=== PATIENT | male | born 1935 | race Caucasian/White ===

== ENCOUNTER → 2017-10-25 | Outpatient (CLI) | payer OTHER, MEDICARE ==
[~2017-10-25] MED LIST: ACET-3017 PO; ACET500L35 PO; ADV250/50 INH; ALBU8.5H12 IH; AMI25 PO; AMOX-559 PO; ASPI-292 PO; ASPI-715 PO; ASPI-879 PO; ASPI81TA15 PO; ASPI81TA94 PO; ATOR20TA22 PO; ATOR40TA24 PO; AZI250 PO; BACDS PO; BIS10S PR; CHOLEST MED; CIP500 PO; CLOP75TA PO; CLOP75TA65 PO; DEXL60CA6 PO; DIC10 PO; DICY10CA11 PO; DICY10CA62 PO; DOC100 PO; ESOM40CA42 PO; FAM20 PO; FES4PT PO; FLU10 PO; FLU180SY9 IM; GEM600 PO; GEMF600T89 PO; GEMF600T91 PO; HYDR-6015 PO; HYDR1TAB PO; IBU200 PO; LAN30PT PO; LANS15CA38 PO; LEVE100034 PO; LEVE750T48 PO; LOR5/325 PO; LOR7.5/325 PO; LORA-1455 PO; LOSA100T67 PO; LOSA50TA72 PO; MAGN30OR2 PO; MET10 PO; METH1TAB65 PO; METH4TAB66 PO; METO50TA19 PO; MIR PO; MULT-820 PO; MULT-865 PO; MULTIVIT; OMEP-153 PO; OMEP-218 PO; ONDA4TAB SL; OXYC1TAB54 PO; OXYGEN INH; OXYGENHOME INH; PARO10TA80 PO; PER PO; PHENA200 PO; POLY17PO25 PO; PRE5 PO; PRED20TA6 PO; PRO25 PO; PROM12.546 PO; RIVA20TA PO; TAMS0.4C76 PO; TOLT4CAP PO; TOLT4CAP13 PO; TRA50 PO; TRAM-420 PO; TRAN1TBM PO; TRIC15T TOP; UMEC1DIS INH; WARF2.5T11 PO; [UNRECOGNIZED DRUG - CODE] PO; [UNRECOGNIZED DRUG - CODE] PO; [UNRECOGNIZED DRUG - REMARK]
[2017-10-25 16:56] LABS: PLATELET COUNT, AUTOMATED 209 K/uL (150-450)
== END ==
LOC: LAB 16:32
PROVIDERS: ATTEND Family Medicine
DX: I25.10 Atherosclerotic heart disease of native coronary artery without angina pectoris (principal); R53.83 Other fatigue; E53.8 Deficiency of other specified B group vitamins; E55.9 Vitamin D deficiency, unspecified; Z79.01 Long term (current) use of anticoagulants
CPT/HCPCS: 36415; 82040; 82247; 82306; 82310; 82374; 82435; 82565; 82607; 82947; 84075; 84132; 84155; 84295; 84443; 84450; 84460; 84520; 85025

== ENCOUNTER → 2017-12-14 | Outpatient (CLI) | payer OTHER, MEDICARE ==
[~2017-12-14] MED LIST changes: +DIPH0.5D12 IM; +PSYL660P5
[2017-12-14 09:09] LABS: PLATELET COUNT, AUTOMATED 206 K/uL (150-450)
== END ==
LOC: LAB 08:38
PROVIDERS: ATTEND Family Medicine
DX: R19.7 Diarrhea, unspecified (principal); R10.9 Unspecified abdominal pain; R53.83 Other fatigue
CPT/HCPCS: 36415; 82040; 82247; 82310; 82374; 82435; 82565; 82947; 84075; 84132; 84155; 84295; 84443; 84450; 84460; 84520; 85025

== ENCOUNTER → 2017-12-16 | Outpatient (CLI) | payer OTHER, MEDICARE ==
[~2017-12-16] MED LIST changes: +IOPAMIDOL 76% 75 ML INFUS BTL 75 ML ONE
--- NOTE | 2017-12-16 10:21 | RADIOLOGY IMAGING REPORT ---
[place] [facility] [place] NAME: Lloyd Cardona : 1935 MR: [id number] V: [id number] EXAM DATE: ORDERING PHYSICIAN: BALDEV HATFIELD TECHNOLOGIST: Location: [facility] - [place] Patient: Lloyd Cardona : 1935 Visit/Account:[id number] Date of Sevice: 12/16/2017 EXAMINATION: CT abdomen without IV contrast CT abdomen with IV contrast CT pelvis without IV contrast CT pelvis with IV contrast HISTORY: Abdominal pain. Diarrhea. Colon cancer. TECHNIQUE: Spiral scans were obtained through the abdomen and pelvis before and during injection of nonionic iodinated intravenous contrast. Sagittal and coronal reformatted images are also submitted . One of the following dose optimization techniques was utilized in the performance of this exam: Autom ated exposure control; adjustment of the mA and/or kV according to the patient's size; or use of an i terative reconstruction technique. Specific details can be referenced in the facility's radiology C T exam operational policy. CONTRAST: 75 mL of IV Isovue-370 COMPARISON: CTA runoff dated 04/14/2014. FINDINGS: Lower chest: Coronary artery calcification. Partially imaged cardiac leads. Liver / biliary: Multiple small hypodensities in the liver are similar compared to prior exams. Post op cholecystectomy. Pancreas: Negative. Spleen: Negative. Adrenal glands: Negative. Kidneys: Multiple stable bilateral renal cysts measuring up to 7.9 x 6.1 cm on the left. Otherwise n egative. Pelvic structures: Negative. Bowel: Suture line in the distal transverse colon. No obstruction or bowel wall thickening. Peritoneum / retroperitoneum / mesenteries: Negative. Vessels: Moderate aortoiliac calcification. Stent in the right common iliac artery. Occluded left i liac arteries. Patent femorofemoral bypass graft. Portal, splenic, and mesenteric veins are patent. Lymph nodes: Negative. Musculoskeletal / Body wall: Multilevel degenerative disc disease and facet hypertrophy in the thorac olumbar spine. Mild convex leftward curvature of the thoracolumbar spine. Mild bilateral hip osteoa rthritis. No aggressive osseous lesions. IMPRESSION: 1. No acute abnormality in the abdomen or pelvis. 2. Multiple small stable hypodensities in the liver. These are most likely benign cysts. No additi onal evidence of metastasis in the abdomen or pelvis. 3. Stable bilateral renal cysts. Report Dictated By: Austin Casiano MD at 12/16/2017 9:36 AM Report E-Signed By: Austin Casiano MD at 12/16/2017 10:17 AM WSN:[email or web address]
== END ==
LOC: CT 02:07
PROVIDERS: ATTEND Family Medicine
DX: N28.1 Cyst of kidney, acquired (principal); K76.89 Other specified diseases of liver
CPT/HCPCS: 74178; Q9967

== ENCOUNTER → 2018-02-08 | Outpatient (CLI) | payer OTHER, MEDICARE ==
[~2018-02-08] MED LIST changes: +BARIUM SULFATE 176 GM BTL PO ONE; +BARIUM SULFATE 340 GM POWD ONE; +DUL20 PO; -IOPAMIDOL 76% 75 ML INFUS BTL 75 ML ONE; -LOSA100T67 PO; +LOSA100T69 PO; +LOSA25TA52 PO; -LOSA50TA72 PO; +LOSA50TA74 PO; +RANI-318 PO
--- NOTE | 2018-02-08 14:00 | RADIOLOGY IMAGING REPORT ---
FACILITY: [facility] PATIENT NAME: Lloyd Cardona : 1935 MR: [id number] V: [id number] EXAM DATE: ORDERING PHYSICIAN: GEOVANNA DANIELS TECHNOLOGIST: Location: [facility] Patient: Lloyd Cardona : 1935 Visit/Account:[id number] Date of Sevice: 02/08/2018 Exam type: UPPER GI W/SMALL BOWEL SERIES History: Postprandial nausea, upper abdomen pain, diarrhea Comparison: May 04, 2011. Findings: Double contrast upper GI series was performed with thick and thin barium and air. There is a small h iatal hernia with a large amount of gastroesophageal reflux observed. No significant esophageal narr owing or mucosal erosion is seen. The gastric antrum appear to be displaced superiorly with widening of the duodenal C-loop. The gastric antrum was hypoperistaltic. There is a paucity of gastric fold s. The duodenal bulb was grossly unremarkable. The barium was followed throughout the small bowel to the unremarkable terminal ileum with a transit time of 30 minutes.. There appeared to be transient dilatation of multiple loops of small bowel in t he mid and left-sided abdomen measuring up to 6 cm in diameter although no mechanical obstruction was identified. The fluoroscopy dose area product was 2104.47 micro-Espinoza per meter squared IMPRESSION: 1. Small hiatal hernia with a large amount of gastroesophageal reflux although no significant esopha geal narrowing or mucosal erosion The gastric antrum appear to be displaced superiorly with widening of the duodenal C-loop. Although this could represent an anatomic variant possibility of extrinsic mass effect from a mass lesion is n ot excluded and clinical correlation is needed. The gastric antrum appeared hypoperistaltic although no mechanical obstruction seen. There is a paucity of gastric folds noted Transit time through the small bowel to the right-sided colon was 30 minutes. There appear to be tra nsient dilatation of multiple loops of small bowel in the mid and left-sided abdomen measuring up to 6 cm in diameter although no mechanical obstruction identified Report Dictated By: Traci Lagunas MD at 02/08/2018 1:39 PM Report E-Signed By: Traci Lagunas MD at 02/08/2018 1:55 PM WSN:[email or web address]
== END ==
LOC: RAD 02:19
PROVIDERS: ATTEND Surgery
DX: K21.9 Gastro-esophageal reflux disease without esophagitis (principal); K44.0 Diaphragmatic hernia with obstruction, without gangrene
CPT/HCPCS: 74245

== ENCOUNTER 2018-02-28 00:58 | Day surgery (SDC) | payer OTHER, MEDICARE ==
[~2018-02-28] VITALS: Ht 172.7 cm; Wt 68.5 kg
[~2018-02-28 00:58] MED LIST changes: -BARIUM SULFATE 176 GM BTL PO ONE; -BARIUM SULFATE 340 GM POWD ONE; +FLU180SY11 IM
[2018-02-28 06:59] VITALS: BP 128/74
[2018-02-28] MEDS ORDERED: NORMOSOL R SOLN(*) 1000 ML BAG 1,000 ML IV PRN (07:25)
[2018-02-28] MEDS ORDERED: LIDOCAINE/SOD BICARB 8.4% SYR ID ONE (07:25)
[2018-02-28 08:49] VITALS: BP 98/55
[2018-02-28 09:00] VITALS: BP 81/48
--- NOTE | 2018-02-28 09:02 | Short(Outpt) Discharge Summary ---
Discharge Summary Reason for Hosp/Final Diag: (1) Upper abdominal pain Status: Chronic Hospital Course & Plan: EGD with biopsies completed without problems. (2) Postprandial nausea Status: Chronic (3) Frequent loose stools Status: Chronic Departure Discharge to: Home, Self Care Discharge Instructions Home Meds Active Scripts Ranitidine Hcl (RANITIDINE HCL) 150 Mg Tablet, 1 TAB PO BID, #60 TAB 3 Refills Prov:GEOVANNA DANIELS MD 01/31/18 Duloxetine Hcl (CYMBALTA) 20 Mg Capcr, 20-40 MG PO QDAY for 30 Days, #60 CAP Prov:BALDEV HATFIELD MD 01/26/18 Losartan Potassium (LOSARTAN POTASSIUM) 25 Mg Tablet, 25 MG PO QDAY for 90 Days, #90 TAB 4 Refills Prov:BALDEV HATFIELD MD 01/26/18 Atorvastatin Calcium (LIPITOR) 40 Mg Tablet, 1 TAB PO QDAY, #90 TAB 4 Refills Prov:BALDEV HATFIELD MD 12/26/17 Rivaroxaban 20 Mg (XARELTO 20 MG) 20 Mg Tablet, 1 TAB PO DAILY for 60 Days, #60 TAB 3 Refills Prov:BALDEV HATFIELD MD 09/23/17 Reported Medications Psyllium Husk (Metamucil) 3.4 Gram/5.4 Gram Powder 11/30/17 Oxygen (OXYGEN) Inha, 1.5 L INH QHS, L 12/08/16 Multivitamin (DAILY MULTIPLE VITAMIN) 1 Each Tablet, 1 TAB PO DAILY 12/08/16 Polyethylene Glycol 3350 (MIRALAX) 17 Gm Powd.pack, 17 GM PO DAILY, PKT 12/08/16 Diet: Regular Activity: As Tolerated Special Instructions: Your upper endoscopy was completed without any problems. I took some biopsies of your small intestine and stomach. Everything looked normal other than a small hiatal hernia which is benign and common, occuring in about 40% of people. I didn't find any cancer, ulcers, or inflammation. My office will call you in the next couple of days to order some further testing and schedule a follow up appointment to see me back in my office to discuss your symptoms and to discuss the results of all the tests we'll have completed by that time. Problem Qualifiers (1) Frequent loose stools: Diarrhea type: unspecified type Qualified Codes: R19.7 - Diarrhea, unspecified JEREMIAH,LILLIAN MD Feb 28, 2018 09:02
[2018-02-28 09:30] VITALS: BP 115/81
[2018-02-28 09:52] VITALS: BP 116/73
[2018-02-28 09:54] VITALS: BP 131/83
== END 2018-02-28 10:11 | disposition home or self-care (01) ==
LOC: OR 00:58
PROVIDERS: ATTEND Surgery
DX: K44.9 Diaphragmatic hernia without obstruction or gangrene (principal)
CPT/HCPCS: 36415; 83516; 86256; 87077; 88305

== ENCOUNTER 2018-03-03 12:16 | Outpatient (RCR) | payer OTHER, MEDICARE ==
[2018-03-06] MEDS ORDERED: NS(*) 0.9% 50 ML BAG 50 ML ONE (07:37)
[2018-03-06] MEDS ORDERED: IOPAMIDOL 76% 100 ML INFUS BTL 100 ML ONE (07:37)
--- NOTE | 2018-03-06 11:22 | RADIOLOGY IMAGING REPORT ---
FACILITY: [facility] - [place] PATIENT NAME: Lloyd Cardona : 1935 MR: [id number] V: [id number] EXAM DATE: ORDERING PHYSICIAN: GEOVANNA DANIELS TECHNOLOGIST: Location: [facility] - [place] Patient: Lloyd Cardona : 1935 Visit/Account:[id number] Date of Sevice: 03/06/2018 CTA ABDOMEN PELVIS W WO CONT HISTORY: Bloating abdomen pain, postprandial nausea ADDITIONAL HISTORY: None. TECHNIQUE: CTA abdomen and pelvis with IV contrast. 3D coronal slab MIPs and 2D reconstructions in the coronal and sagittal planes were also created. Dose Lowering Technique One of the following dose optimization techniques was utilized in the performance of this exam: Autom ated exposure control; adjustment of the mA and/or kV according to the patient's size; or use of an i terative reconstruction technique. Specific details can be referenced in the facility's radiology C T exam operational policy. CONTRAST: 100 COMPARISON: None. FINDINGS: Vessels: There are moderate atherosclerotic calcifications in the infrarenal abdominal aorta without aneurysmal dilatation. There is a right common iliac artery stent. There is occlusion of the left common iliac artery and torres martinez left common femoral artery. There is a femorofemoral bypass graft tunneled in the subcutaneous soft tissues anterior to the pubic symphysis which is well opacified with contrast. There is a moderate narrowing in the SMA approximately 3.5 cm beyond its origin. There is a blush of contrast seen just to the left of midline in the anterior abdomen (image 54 of series 4) which appears to be within the wall of the loop of small bowel. A similar finding is seen but to lesser extent along the posterior wall at the junction of the second and third portions of the duodenum present on image 52 of series 4. These likely represent small focal AVMs or foci of angiod ysplasia. Abdomen and Pelvis: The abdominal and pelvic organs were visualized in the arterial phase Visualized lower lung garcia: Cardiac leads are partially visualized Hepatobiliary: Postsurgical changes from a cholecystectomy Previously noted tiny round hypodensities within the liver were better depicted on the prior portal v enous phase images Spleen: Negative. Adrenals: Negative. Pancreas: Negative. Kidneys: Again noted are bilateral renal cysts that appear relatively stable. Upper pole cyst on th e left contains a coarse calcifications similar to the prior study . Pelvic structures: There appears to been a TURP. Bowel/peritoneum/mesentery: Surgical anastomosis again seen in the distal transverse colon with a fo jacklyn dilatation of the bowel although appears similar to the prior study and likely represents an aton ic segment. There is mild thickening of multiple loops of small bowel in the mid abdomen in addition to several mildly dilated fluid-filled loops of small bowel in the right lower quadrant measuring up to 3.5 cm in diameter . Lymph nodes: Negative. Bones/body wall: Extensive spondylotic changes of the thoracolumbar spine Other findings: None significant IMPRESSION: There is mild thickening of multiple loops of small bowel in the mid abdomen in addition to several m ildly dilated fluid-filled loops of small bowel in the right lower quadrant. This could represent fo jacklyn area of enteritis. The bowel wall is enhancing therefore ischemia seems less likely. There is a moderate narrowing the SMA approximately 3.5 cm beyond its origin There are two focal areas demonstrating a blush of contrast within small bowel wall as described abov e which likely represents areas of angiodysplasia or AVMs. 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 Additional chronic findings as described Report Dictated By: Traci Lagunas MD at 03/06/2018 9:50 AM Report E-Signed By: Traci Lagunas MD at 02/14 11:18 AM WSN:[email or web address]
[2018-03-31] MEDS ORDERED: DUL20 PO (10:55)
== END 2018-03-06 18:00 | disposition home or self-care (01) ==
LOC: CT 12:16 → EDSTATUS 03-06 12:16 → CT 03-06 18:00
PROVIDERS: ATTEND Surgery
DX: Z01.812 Encounter for preprocedural laboratory examination (principal); I25.10 Atherosclerotic heart disease of native coronary artery without angina pectoris; Z95.828 Presence of other vascular implants and grafts; I74.5 Embolism and thrombosis of iliac artery
CPT/HCPCS: 36415; 74174; 82565; J7050; Q9967

== ENCOUNTER → 2018-09-20 | Outpatient (CLI) | payer OTHER, MEDICARE ==
[~2018-09-20] MED LIST changes: -DIPH0.5D12 IM; +DIPH0.5S2 IM; -LOSA100T69 PO; +LOSA100T75 PO; -LOSA25TA52 PO; +LOSA25TA57 PO; -LOSA50TA74 PO; +LOSA50TA80 PO
[2018-09-20 08:47] LABS: PLATELET COUNT, AUTOMATED 177 K/uL (150-450)
== END ==
LOC: LAB 08:24
PROVIDERS: ATTEND Family Medicine
DX: R04.0 Epistaxis (principal)
CPT/HCPCS: 36415; 82310; 82374; 82435; 82565; 82947; 84132; 84295; 84520; 85025

== ENCOUNTER 2018-10-25 20:22 | Emergency (ER) | payer OTHER, MEDICARE ==
[~2018-10-25 20:22] MED LIST changes: +BENZ100C4 PO
--- NOTE | 2018-10-25 20:25 | ER Report ---
History and Physical Time Seen By MD: 20:24 HPI/ROS CHIEF COMPLAINT: Throat closing sensation HISTORY OF PRESENT ILLNESS: 83-year-old male has been sick with cold symptoms for several days last week. He was started on Tessalon and take well by his primary care physician, . Patient tonight after eating some spices and some cream of mushroom soup began to develop some throat swelling sensation. He's had no fever, no chills. He notes no sore throat. He's been started on no new medications that would cause angioedema or throat swelling. Patient reports that he is getting slightly better now that he is arrived to the hospital. REVIEW OF SYSTEMS: Respiratory: No cough, no dyspnea. Cardiovascular: No chest pain, no palpitations. Gastrointestinal: No vomiting, no abdominal pain. Musculoskeletal: No back pain. Allergies: Coded Allergies: Sulfa (Sulfonamide Antibiotics) (Verified Allergy, Intermediate, RASH, 10/25/18) cefazolin (Verified Allergy, Mild, ITCHING, NAUSEA, 10/25/18) atorvastatin (Verified Allergy, Unknown, 10/25/18) cephalexin (Verified Allergy, Unknown, 10/25/18) ciprofloxacin (Verified Allergy, Unknown, 10/25/18) fentanyl (Verified Allergy, Unknown, 10/25/18) "freaks out" gluten (Verified Allergy, Unknown, 10/25/18) Celiac disease iodine (Verified Allergy, Unknown, CHILDHOOD REACTION-PT AVOIDS, 10/25/18) paroxetine (Verified Allergy, Unknown, 10/25/18) sulfamethoxazole (Verified Allergy, Unknown, 10/25/18) trimethoprim (Verified Allergy, Unknown, 10/25/18) vancomycin (Verified Allergy, Unknown, 10/25/18) meperidine (Verified Adverse Reaction, Intermediate, HALLUCINATIONS, 10/25/18) oxycodone HCl (Verified Adverse Reaction, Mild, NAUSEA, 10/25/18) Home Meds Active Scripts Azithromycin 250 Mg Tab (AZITHROMYCIN 250 MG TAB) 250 Mg Tablet, 0 PO QDAY, #6 TAB TAKE 2 TABLETS ON DAY 1 AND 1 TABLET ON DAYS 2-5 Prov:RUCHI GARCIA DO 10/25/18 Benzonatate 100 Mg Cap (TESSALON PERLE 100 MG CAP) 100 Mg Capsule, 100 MG PO TID PRN for cough, #15 CAP Prov:BALDEV HATFIELD MD 10/18/18 Duloxetine Hcl (CYMBALTA) 20 Mg Capcr, 2 CAP PO QDAY for 90 Days, #180 CAP 2 Refills Prov:BALDEV HATFIELD MD 09/04/18 Rivaroxaban 20 Mg (XARELTO 20 MG) 20 Mg Tablet, 1 TAB PO DAILY for 90 Days, #90 TAB 2 Refills Prov:BALDEV HATFIELD MD 09/04/18 Ranitidine Hcl (RANITIDINE HCL) 150 Mg Tablet, 1 TAB PO BID, #120 TAB 6 Refills Prov:GEOVANNA DANIELS MD 05/23/18 Losartan Potassium (LOSARTAN POTASSIUM) 25 Mg Tablet, 25 MG PO QDAY for 90 Days, #90 TAB 4 Refills make sure ADIKT[employer] manufacture for gluten free Prov:BALDEV HATFIELD MD 04/27/18 Atorvastatin Calcium (LIPITOR) 40 Mg Tablet, 1 TAB PO QDAY, #90 TAB 4 Refills Prov:BALDEV HATFIELD MD 12/26/17 Reported Medications Oxygen (OXYGEN) Inha, 1.5 L INH QHS, L 12/08/16 Multivitamin (DAILY MULTIPLE VITAMIN) 1 Each Tablet, 1 TAB PO DAILY 12/08/16 Discontinued Reported Medications Psyllium Husk (Metamucil) 3.4 Gram/5.4 Gram Powder 11/30/17 Polyethylene Glycol 3350 (MIRALAX) 17 Gm Powd.pack, 17 GM PO DAILY, PKT 12/08/16 Reviewed Nurses Notes: Yes Old Medical Records Reviewed: Yes Hx Smoking: No Smoking Status: Former Smoker Exposure to Second Hand Smoke?: No Hx Substance Use Disorder: No Hx Alcohol Use: No Constitutional Vital Sign - Last 24 Hours 10/25/18 10/25/18 10/25/18 10/25/18 20:25 20:25 20:30 20:37 Temp 99.6 Pulse 72 72 Resp 22 B/P (MAP) 145/79 145/79 (101) 129/70 (89) Pulse Ox 91 92 O2 Delivery Room Air 10/25/18 10/25/18 10/25/18 10/25/18 20:52 21:00 21:07 21:20 Pulse 70 69 70 Resp 16 B/P (MAP) 125/72 (89) Pulse Ox 89 90 10/25/18 10/25/18 10/25/18 10/25/18 21:20 21:22 21:27 21:29 Pulse 70 70 70 Resp 16 Pulse Ox 94 94 94 O2 Delivery Nasal Cannula O2 Flow Rate 1.0 10/25/18 10/25/18 10/25/18 10/25/18 21:30 21:42 21:59 22:12 Pulse 69 69 B/P (MAP) 135/80 (98) 141/89 (106) Pulse Ox 94 97 10/25/18 10/25/18 22:27 22:30 Pulse 70 B/P (MAP) 139/78 (98) Pulse Ox 95 Medical Decision Making ED Course/Re-evaluation ED Course Patient was admitted to an examination room. H&P was done. The differential diagnosis was considered. Patient with cold symptoms for several days, almost one week now. He's having some throat swelling sensation and pain in his throat. He reports no hives or itching or flushing. He feels his throat is closing. He keeps clearing his throat. He had cream of mushroom soup for dinner and has started no new medications. He was prescribed Tessalon Perles by his primary care doctor Vickie. Patient denies any new medications that would likely be causing angioedema. His medication list was reviewed. Patient notes continued low-grade fevers. He has a nonproductive cough. He denies postnasal drip or nasal drainage. Patient was treated with IV Solu-Medrol, Benadryl and a DuoNeb. He was unimproved. A chest x-ray was performed as the patient's persistent cough and shortness of breath. It was unremarkable for obvious infiltrate. Comparison to previous chest x-ray. There is no evidence of change. Patient be discharged home on Zithromax. He is advised to follow-up with Dr. Hatfield in 3-4 days if unimproved. Decision to Disposition Date: Oct 25, 2018 Decision to Disposition Time: 22:29 Depart Departure Latest Vital Signs Vital Signs Date Time Temp Pulse Resp B/P (MAP) Pulse Ox O2 Delivery O2 Flow Rate FiO2 10/25/18 22:30 139/78 (98) 10/25/18 22:27 70 95 10/25/18 21:29 16 10/25/18 21:20 Nasal Cannula 1.0 10/25/18 20:25 99.6 Impression: Primary Impression: Pharyngitis Condition: Improved Disposition: HOME OR SELF-CARE Referrals: BALDEV HATFIELD MD (PCP) New Scripts Azithromycin 250 Mg Tab (AZITHROMYCIN 250 MG TAB) 250 Mg Tablet 0 PO QDAY, #6 TAB TAKE 2 TABLETS ON DAY 1 AND 1 TABLET ON DAYS 2-5 Prov: RUCHI GARCIA DO 10/25/18 Patient Instructions: Pharyngitis (ED) Additional Instructions: Follow-up with if not better in 3-5 days Problem Qualifiers Primary Impression: Pharyngitis Pharyngitis/tonsillitis etiology: unspecified etiology Qualified Codes: J02.9 - Acute pharyngitis, unspecified RUCHI GARCIA DO Oct 25, 2018 20:25
[2018-10-25] MEDS ORDERED: diphenhydrAMINE 50 MG/ML VIAL IVP ONE (20:30)
[2018-10-25] MEDS ORDERED: methylPREDNIS SUCC 125 MG/2ML IVP ONE (20:30)
[2018-10-25] MEDS ORDERED: FAMOTIDINE 20 MG TAB PO ONE (20:30)
[2018-10-25] MEDS ORDERED: ALBUTEROL/IPRATROPIUM 3 ML NEB NEB ONE (21:25)
--- NOTE | 2018-10-25 22:14 | RADIOLOGY IMAGING REPORT ---
FACILITY: [facility] - [place] PATIENT NAME: Lloyd Cardona : 1935 MR: [id number] V: [id number] EXAM DATE: ORDERING PHYSICIAN: RUCHI GARCIA TECHNOLOGIST: Location: [facility] Patient: Lloyd Cardona : 1935 Visit/Account:[id number] Date of Sevice: 10/25/2018 TWO VIEW CHEST 10/25/2018 9:44 PM. INDICATION: Dyspnea, cold symptoms. COMPARISON: 10/13/2016. FINDINGS: Lungs are well-expanded. The lungs are clear. No pneumothorax or pleural effusion. Heart size is normal. Unchanged dual-chamber pacer with leads in the right atrium and right ventricle. C holecystectomy clips. Reverse left shoulder prosthesis. Bone anchors in the right humeral head. IMPRESSION: No acute abnormality or significant change. Report Dictated By: Houston Reid MD at 10/25/2018 10:08 PM Report E-Signed By: Houston Reid MD at 10/25/2018 10:11 PM WSN:[id number]
[2018-10-25 22:30] VITALS: BP 139/78
[2018-10-25] MEDS ORDERED: AZITHROMYCIN 250 MG TAB PO ONE (22:30)
[2018-10-25] MEDS ORDERED: AZIT-18 PO (22:32)
== END 2018-10-25 22:48 | disposition home or self-care (01) ==
LOC: ER 20:46
DX: J02.9 Acute pharyngitis, unspecified (principal)
CPT/HCPCS: 71046; 94640; 96374; 96375; 99284; J1200; J2930; J7620; Q0144

== ENCOUNTER → 2018-10-31 | Outpatient (CLI) | payer MEDICARE, OTHER ==
[~2018-10-31] MED LIST changes: +AZIT-18 PO
== END ==
LOC: LAB 13:55
PROVIDERS: ATTEND Family Medicine
DX: N18.9 Chronic kidney disease, unspecified (principal)
CPT/HCPCS: 36415; 82310; 82374; 82435; 82565; 82947; 84132; 84295; 84520